=== PATIENT | male | born 1975 | race Caucasian/White ===

== ENCOUNTER 2025-04-25 01:04 | Emergency (ER) | payer MEDICARE, MEDICAID ==
[~2025-04-25] VITALS: Ht 182.9 cm; Wt 98.2 kg
[2025-04-25 01:17] VITALS: TEMP 99.1
[2025-04-25 03:41] LABS: MEAN PLATELET VOLUME 6.6 FL (7.4-10.4); RED CELL DISTRIBUTION WIDTH 15.2 % (11.5-14.5)
[2025-04-25] MEDS: normal saline 1000ml 1,000 ML IV ONE (03:42)
[2025-04-25] MEDS: ondansetron/PF 4mg/2ml inj IV ONE (03:42)
[2025-04-25] MEDS: ketorolac trometh 30MG/ML vial 30 MG/ML VIAL IV ONE (03:42)
[2025-04-25 03:53] LABS: CREATININE 0.75 MG/DL (0.60-1.10); TOTAL CARBON DIOXIDE 29.2 MMOL/L (24-32); eCRCL 126 ML/MIN; eGFR > 90 ML/MIN
--- NOTE | 2025-04-25 05:04 | Physician Documentation ---
History of Present Illness Chief Complaint: Vomiting Stated Complaint: VOMITING Time Seen by MD: 03:18 Mode of Arrival: POV, Ambulatory HPI 50 year old male reports nausea and vomiting that started this morning. EMS brought him in from the bus stop. He is traveling to [place] via bus. He had a few beers today. He reports that his sodium might be low which has happened to him in the past. Denies fevers, abdominal pain, diarrhea, chest pain, shortness of breath. Medication Reconciliation Allergies: Coded Allergies: Penicillins (Unverified Allergy, Unknown, "GOT ME THATS WHAT MY PARENTS SAID.", 04/25/25) Review of Systems All Other Systems at this time: Reviewed and Negative Physical Exam Vital Signs: RN Vital Signs have been reviewed: Yes, Temperature: 99.1, Source: Temporal, Heart Rate: 86, Respiratory Rate: 16, BP: 148/69, Pulse Oximetry: 95, Weight: 98.200 Oxygen Flow Rate: 0 Physical Exam HEENT: PERRL, moist oral mucosa, EOMI Pulmonary: No respiratory distress CTAB Cardiac: RRR, no murmur, rub or gallop GI: nondistended, soft, nontender, no guarding, no rebound MSK: no deformity Skin: w/d/i, no rash Neuro: alert, nonfocal Psych: normal affect Progress Results/Orders Results/Orders Orders - ROM HERRON MD Urinalysis, Cult If Indicated (04/25/25 02:27) Completed Orders - ROM HERRON MD Cbc/Diff (04/25/25 02:27) Lipase (04/25/25 02:27) CMP (04/25/25 02:27) Ondansetron Inj. (Zofran 4mg/2ml Vial) (04/25/25 03:30) Ketorolac Trometh 30mg/Ml Vial (Toradol (04/25/25 03:30) Normal Saline 1000ml (0.9% Sodium Chlori (04/25/25 03:30) Medications Received in ER Medications (Trade) Dose Ordered Sig/Saúl Route PRN Reason Start Time Stop Time Status Last Admin Dose Admin (Zofran 4mg/2ml vial) 4 mg ONCE ONCE IV 04/25/25 03:30 04/25/25 03:31 DC 04/25/25 03:42 4 MG (Toradol inj. 30mg/ml) 30 mg ONCE ONCE IV 04/25/25 03:30 04/25/25 03:31 DC 04/25/25 03:42 30 MG Sodium Chloride 1,000 ml @ 1,000 mls/hr ONCE ONCE IV 04/25/25 03:30 04/25/25 04:29 DC 04/25/25 03:42 1,000 MLS/HR Vital Signs 04/25/25 04/25/25 04/25/25 04/25/25 01:17 03:40 03:42 04:06 Temp 99.1 Pulse 114 86 Resp 20 16 16 16 B/P (MAP) 145/95 148/69 (95) Pulse Ox 95 95 O2 Flow Rate 0 0 04/25/25 04:46 Resp 16 Laboratory Tests Test 04/25/25 03:25 White Blood Count 7.4 Red Blood Count 4.88 Hemoglobin 14.7 Hematocrit 44.2 Mean Corpuscular Volume 90.7 Mean Corpuscular Hemoglobin 30.2 Mean Corpuscular Hemoglobin Concent 33.3 Red Cell Distribution Width 15.2 H Platelet Count 274 Mean Platelet Volume 6.6 L Neutrophils (%) (Auto) 70.1 Lymphocytes (%) (Auto) 18.3 L Monocytes (%) (Auto) 8.7 Eosinophils (%) (Auto) 2.1 Basophils (%) (Auto) 0.8 Neutrophils # (Auto) 5.2 Lymphocytes # (Auto) 1.4 Monocytes # (Auto) 0.6 Eosinophils # (Auto) 0.2 Basophils # (Auto) 0.1 CBC Comment Sodium Level 133 L Potassium Level 3.4 L Chloride Level 91 L Carbon Dioxide Level 29.2 Anion Gap 13 Blood Urea Nitrogen 3 L Creatinine 0.75 Estimated GFR/1.73 m2 > 90 BUN/Creatinine Ratio 4.0 L Glucose Level 161 H Calcium Level 8.5 Total Bilirubin 0.5 Aspartate Amino Transf (AST/SGOT) 50 H Alanine Aminotransferase (ALT/SGPT) 44 Alkaline Phosphatase 141 H Total Protein 7.8 Albumin 3.2 L Globulin 4.6 H Albumin/Globulin Ratio 0.7 L Lipase 29 Chemistry Comments Medical Decision Making Additional information obtaine: N/A Findings 50 year old male with vomiting as above. IVF and meds, improved on reevaluation and appeared to be sleeping comfortably. Workup was largely unremarkable otherwise. Discharge with return precautions. Differential Dx:Considerations: Other Additional Comments Ddx = gastroparesis, gastroenteritis, CHS, food poisoning, alcohol intoxication Departure Disposition: HOME / SELF CARE / HOMELESS Impression: Primary Impression: Vomiting Condition: Stable Discharge Instructions: Nausea and Vomiting, Adult Referrals: NO PRIMARY CARE PROVIDER (PCP) Education Educated: Patient Educated regarding: diagnosis, treatment, prognosis, need for follow up Signature Scribe Signature: . Attestation: . ROM HERRON MD Apr 25, 2025 05:04
[2025-04-25 05:23] VITALS: BP 144/69; PULSE 83; RESP 16; O2SAT 94
[2025-04-25 06:01] LABS: LEUKOCYTE ESTERASE ,URINE NEGATIVE (Neg); NITRITES, URINE NEGATIVE (Neg); OCCULT BLOOD,URINE NEGATIVE (Neg)
[2025-04-25 06:05] LABS: UA COLLECTION TYPE NON-SPECIFIED
== END 2025-04-25 05:25 | disposition home or self-care (01) ==
LOC: ER 01:05
DX: R11.10 Vomiting, unspecified (principal); Z88.0 Allergy status to penicillin
CPT/HCPCS: 36415; 80053; 81003; 83690; 85025; 96361; 96374; 96375; 99284; J1885; J2405; J7030